=== PATIENT | male | born 1965 | race Caucasian/White ===

== ENCOUNTER 2025-02-15 14:22 | Emergency (ER) | payer BC ==
[2025-02-15] MEDS: Sodium Chloride 0.9% 10 ML Syringe FLUSH PRN (14:31)
[2025-02-15 14:51] LABS: BASOPHILS ABSOLUTE AUTO 0.1 K/mm3 (0.0-0.2); BASOPHILS PERCENT AUTO 0.6 % (0.0-1.0); EOSINOPHILS ABSOLUTE AUTO 0.1 K/mm3 (0.0-0.4); EOSINOPHILS PERCENT AUTO 1.2 % (0.0-6.0); IMMATURE GRAN ABSOLUTE AUTO 0.04 K/mm3 (0.00-0.05); IMMATURE GRAN PERCENT AUTO 0.3 % (0.0-0.4); LYMPHOCYTES ABSOLUTE AUTO 1.7 K/mm3 (1.0-4.8); LYMPHOCYTES PERCENT AUTO 14.7 % (24.0-44.0); MEAN PLATELET VOLUME 10.1 fl (9.4-12.4); MONOCYTES ABSOLUTE AUTO 0.8 K/mm3 (0.0-0.8); MONOCYTES PERCENT AUTO 6.7 % (0.0-8.0); NEUTROPHILS ABSOLUTE AUTO 8.8 K/mm3 (1.8-7.7); NEUTROPHILS PERCENT AUTO 76.5 % (41.0-71.0); NRBC ABSOLUTE 0.00 (0.00-0.02); NRBC PERCENT 0.0 % (0.0-0.2); PLATELET COUNT,PLT 336 K/mm3 (150-400); RED BLOOD CELL COUNT 6.12 M/mm3 (4.52-5.90); WHITE BLOOD CELL COUNT,WBC 11.56 K/mm3 (3.9-11.3)
[2025-02-15 15:13] LABS: A/G RATIO 1.0 (1-2); ALANINE AMINOTRANSFERASE,ALT 26.0 U/L (16-63); ASPARTATE AMNIOTRANSFERASE,AST 29.0 U/L (15-37); BILIRUBIN TOTAL 1.2 mg/dL (0.2-1.0); BLOOD UREA NITROGEN,BUN 18.0 mg/dL (7-18); CARBON DIOXIDE,CO2 21.0 mEq/L (21-32); CHLORIDE,CL 103.0 mEq/L (98-107); CREATININE 1.6 mg/dL (0.7-1.3); EST CRCL DRUG DOSING (CG) 65.07 mL/min; ESTIMATED GFR 49.0 mL/min (>60); GLUCOSE RANDOM 88.0 mg/dL (70-99); POTASSIUM,K 4.3 mEq/L (3.5-5.1); PROTEIN TOTAL,TP 8.5 g/dl (6.4-8.2); SODIUM,NA 137.0 mEq/L (136-145); TROPONIN I HIGH SENSITIVITY 8.0 pg/mL (<=76)
[2025-02-15 15:15] LABS: ETHANOL BLOOD MEDICAL 0.0 gm% (0.00)
[2025-02-15] MEDS: Ketorolac 30 MG/ML SDV IVPUSH ONE (17:45)
== END 2025-02-15 17:56 | disposition home or self-care (01) ==
LOC: JD.ED 14:22
DX: E86.0 Dehydration (principal); R55 Syncope and collapse; M25.571 Pain in right ankle and joints of right foot
CPT/HCPCS: 29515; 36415; 73610; 80053; 80307; 82947; 83735; 84484; 85025; 93005; 96361; 96374; 99284; J1885; J7030